=== PATIENT | female | born 1975 | race Caucasian/White ===

== ENCOUNTER 2022-02-20 16:23 | Emergency (ER) | payer BC ==
[2022-02-20] MEDS ORDERED: Ketorolac 30 MG/ML SDV IM ONE (16:38)
== END 2022-02-20 18:50 | disposition home or self-care (01) ==
LOC: FB.ED 16:23
DX: S93.501A Unspecified sprain of right great toe, initial encounter (principal); W22.09XA Striking against other stationary object, initial encounter
CPT/HCPCS: 73660; 96372; 99283; J1885; 99281